=== PATIENT | female | born 1980 | race Asian ===

== ENCOUNTER 2019-06-27 02:16 | Emergency (ER) | payer BC ==
[~2019-06-27] VITALS: Ht 157.5 cm; Wt 80.3 kg
[2019-06-27 02:20] VITALS: BP_SYST 122
[2019-06-27 03:06] VITALS: BP_SYST 122
== END 2019-06-27 03:06 | disposition home or self-care (01) ==
LOC: SED 02:16
DX: F41.9 Anxiety disorder, unspecified (principal); Z88.2 Allergy status to sulfonamides
CPT/HCPCS: 99281